=== PATIENT | male | born 1995 | race Caucasian/White ===

== ENCOUNTER 2016-08-24 09:35 | Emergency (ER) | payer OTHER ==
[~2016-08-24] VITALS: Ht 188 cm; Wt 67.9 kg
[~2016-08-24 09:35] MED LIST: TRAM-10 PO
[2016-08-24 09:41] VITALS: TEMP 36.5; Ht 188 cm; Wt 67.9 kg
--- NOTE | 2016-08-24 10:53 | DIAGNOSTIC IMAGING REPORT ---
RIGHT HAND 3 VIEWS HISTORY: Right hand pain. COMPARISON: None. FINDINGS: There is no fracture or dislocation. Mild dorsal soft tissue swelling. No radiopaque foreign bodies. IMPRESSION: No fractures. Electronically signed by: Yoni Walls M.D. 08/24/2016 10:51 AM Dictated Date/Time: 08/24/2016 10:50 AM
[2016-08-24 11:53] VITALS: BP 162/92; PULSE 79; O2SAT 98
--- NOTE | 2016-08-24 17:17 | EMERGENCY ROOM VISIT NOTE ---
ED Visit Note First contact with patient: 09:56 CHIEF COMPLAINT: Right Hand injury Thursday HISTORY OF PRESENT ILLNESS: This 20-year-old white male punched a window Riki night in an episode of anger. He had sudden onset of pain and swelling that developed in the hand rapidly. He is able to move the fingers although the 4th and 5th fingers are painful in extension. Right hand dominant. They deny any numbness or tingling. He does have some abrasions present on the dorsum of the hand. No prior history of significant hand injury. He has been keeping the abrasions clean and dry. He has gauze currently on his hand. Pain is 5/10. A female friend accompanies him today. REVIEW OF SYSTEM: HEENT: No dizziness, visual problems, hearing loss, or tinnitus. There is no difficulty swallowing and no oral lesions are present. PULMONARY: No cough, shortness of breath, sputum production or hemoptysis. CARDIOVASCULAR: No chest pain, palpitations, shortness of breath or peripheral edema. GASTROINTESTINAL: No diarrhea, constipation, nausea, vomiting, or abdominal pain. GENITOURINARY: No dysuria, frequency, urgency or nocturia. NEUROLOGIC: No weakness, muscle tenderness, epilepsy or history of neurological problems. MUSCULOSKELETAL: No history of joint tenderness/swelling. No history of arthritis or arthralgias. PSYCHIATRIC: No history of depression or mental illness. ENDOCRINE: No history of diabetes, thyroid disorders, or abnormal hair growth. PMH: Benign. FAMILY HISTORY: Noncontributory. SOCIAL HISTORY: [employer] student. Single. Positive EtOH use. Current Medications: None Allergies: NKDA PHYSICAL EXAM: Vital Signs: Afebrile. General: Well-developed, well-nourished, young white male, in obvious discomfort. No acute distress. He is sitting on the bed. Alert and oriented. Skin: Warm and dry with good turgor. No rashes. Superficial lacerations and abrasions present on the dorsum of his hand. These do not require closure. No active bleeding. Mild edema present on the dorsum of the hand diffusely. The patient is not diaphoretic. Musculoskeletal : There is pain with palpation over the shaft of the fourth and 5th metacarpals. No pain with palpation over the first through third metacarpals or thumb through ring finger. Extension of the 5th finger is full but is painful. Neurologic: Gross sensation is intact across each of the fingers and the hand. Capillary refill is equal among all fingers. DATA: X-ray of the hand shows no fractures. This was read by radiology. IMPRESSION: Right hand contusion DISCHARGE INSTRUCTIONS and PLAN: Patient was educated regarding today's findings. Conservative care measures were discussed. He was placed in a North dressing under my direct supervision. Neurovascular status was checked before and after splint placement. Cast care handout was provided. This will be in place for 36 hours. Ice and elevation of the hand frequently over the next 2 days. Tylenol and Motrin every 6 hours for the pain. See your orthopedic surgeon if needed for further evaluation if symptoms do not improve. Avoid further trauma to the hand if possible. Return to the ER for any acute changes. He was reassured that I do not suspect joint violation, tendon rupture , or fracture. Problem List Medical Problems: (1) Diarrhea Status: Resolved (2) No known problems Status: Resolved (3) Right lower quadrant abdominal pain Status: Resolved Current/Historical Medications No Active Prescriptions or Reported Meds Allergies Coded Allergies: No Known Allergies (Unverified , 05/02/13) Vital Signs Date Time Temp Pulse Resp B/P Pulse Ox O2 Delivery O2 Flow Rate FiO2 08/24/16 11:53 79 17 162/92 98 08/24/16 09:41 36.5 66 18 130/87 99 Room Air Departure Information Impression Primary Impression: Contusion of right hand, initial encounter Dispostion Home / Self-Care Condition GOOD Prescriptions No Active Prescriptions or Reported Meds Forms HOME CARE DOCUMENTATION FORM, MOTRIN USE, TYLENOL USE, IMPORTANT VISIT INFORMATION Patient Instructions [facility], ED Contusion Hand Additional Instructions Tylenol and Motrin every 6 hours as needed for discomfort Ice and elevate frequently to reduce pain and swelling Keep the North dressing in place until Thursday morning and keep it dry Cleanse the abrasions daily and cover with Triple Antibiotic ointment Follow-up with [facility] or return to the ED for any acute changes Gentle range of motion daily
== END 2016-08-24 11:54 | disposition home or self-care (01) ==
LOC: C.EDB 09:37
DX: S60.221A Contusion of right hand, initial encounter (principal); W22.8XXA Striking against or struck by other objects, initial encounter